=== PATIENT | male | born 1965 | race Asian ===

== ENCOUNTER 2023-10-04 10:35 | Emergency (ER) | payer BC ==
[~2023-10-04] VITALS: Ht 175.3 cm; Wt 83.0 kg
[~2023-10-04 10:35] MED LIST: SEE MED SHEET
[2023-10-04 10:51] VITALS: O2SAT 99
[2023-10-04 11:14] LABS: HEMATOCRIT 21.5 % (42.0-52.0); HEMOGLOBIN 7.4 g/dL (14.0-18.0); MEAN CORPUSCULAR HEMOGLOBIN 30.6 pg (28.0-32.0); MEAN CORPUSCULAR HGB CONC 34.4 g/dL (31.0-37.0); PLATELET 256 x1000/uL (130-400); RED BLOOD CELL COUNT 2.41 mill/uL (4.7-6.1); RED CELL DISTRIBUTION WIDTH 15.2 % (11.6-14.6); WHITE BLOOD COUNT 4.9 x1000/uL (4.5-11.0)
[2023-10-04 11:19] LABS: CHLORIDE 97 mEq/L (98-107); POTASSIUM 3.7 mEq/L (3.5-5.1); SODIUM 138 mEq/L (136-145)
[2023-10-04 11:20] LABS: CARBON DIOXIDE 33 mEq/L (21-32)
[2023-10-04 11:21] LABS: CALCIUM 9.2 mg/dL (8.7-10.4)
[2023-10-04 11:25] LABS: GLUCOSE 106 mg/dL (70-105)
[2023-10-04 11:26] LABS: UREA NITROGEN BLOOD 18 mg/dL (9-23)
[2023-10-04 11:27] LABS: ALANINE AMINOTRANSFERASE 15 IU/L (10-49); ALBUMIN 4.5 g/dL (3.2-4.8); ASPARTATE AMINOTRANSFERASE 14 IU/L (<34)
[2023-10-04 11:28] LABS: BILIRUBIN TOTAL 0.3 mg/dL (0.1-1.0); CREATININE 5.9 mg/dL (0.6-1.3); PROTEIN TOTAL 7.2 g/dL (6.0-8.3)
[2023-10-04 12:32] VITALS: BP 146/85; PULSE 75; RESP 14; TEMP 97.7
== END 2023-10-04 12:42 | disposition home or self-care (01) ==
LOC: ER 10:35
DX: D64.9 Anemia, unspecified (principal); Z98.890 Other specified postprocedural states
CPT/HCPCS: 80053; 85027; 86850; 86900; 86901; 36415; 99283; Z7610 ×2

== ENCOUNTER 2023-10-10 17:37 | Emergency (ER) | payer BC ==
[~2023-10-10] VITALS: Ht 175.3 cm; Wt 82.0 kg
[2023-10-10 18:16] VITALS: O2SAT 100
[2023-10-10 20:00] LABS: BASOPHILS % 0.9 % (0.0-2.0); HEMATOCRIT. 21.4 % (42.0-52.0); HEMOGLOBIN. 7.1 g/dL (14.0-18.0); LYMPHOCYTES % 13.3 % (20.0-50.0); MEAN CORPUSCULAR HGB CONC 32.9 g/dL (31.0-37.0); MEAN CORPUSCULAR VOLUME 91.2 fL (80.0-94.0); MEAN PLATELET VOLUME 7.5 fl (7.4-10.4); MONOCYTES % 7.7 % (2.0-8.0); NEUTROPHILS % 76.1 % (40.0-76.0); PLATELET 267 x1000/uL (130-400); RED BLOOD CELL COUNT 2.35 mill/uL (4.7-6.1); RED CELL DISTRIBUTION WIDTH 15.7 % (11.6-14.6); WHITE BLOOD COUNT 7.7 x1000/uL (4.5-11.0)
[2023-10-10 20:01] LABS: CHLORIDE 101 mEq/L (98-107); POTASSIUM 5.7 mEq/L (3.5-5.1); SODIUM 139 mEq/L (136-145)
[2023-10-10 20:02] LABS: CALCIUM 9.2 mg/dL (8.7-10.4); CARBON DIOXIDE 30 mEq/L (21-32)
[2023-10-10 20:05] LABS: PARTIAL THROMBOPLASTIN TIME 24.3 sec (23.4-31.0); PROTHROMBIN TIME 11.4 sec (9.6-11.0)
[2023-10-10 20:07] LABS: GLUCOSE 82 mg/dL (70-105); UREA NITROGEN BLOOD 43 mg/dL (9-23)
[2023-10-10 20:09] LABS: ALANINE AMINOTRANSFERASE 10 IU/L (10-49); ALBUMIN 4.7 g/dL (3.2-4.8); ASPARTATE AMINOTRANSFERASE 12 IU/L (<34); BILIRUBIN TOTAL 0.2 mg/dL (0.1-1.0); PROTEIN TOTAL 7.2 g/dL (6.0-8.3)
[2023-10-10] MEDS ORDERED: INSULIN REGULAR (HUMULIN R) 300UNITS/3ML VIAL IV ONE (20:15)
[2023-10-10] MEDS: CALCIUM GLUCONATE 1GM PREMIX 100 ML IV NR (20:15)
[2023-10-10] MEDS ORDERED: CALCIUM GLUCONATE 1,000 MG in DEXT 5% WATER 100 ML IV ONE (20:15)
[2023-10-10 20:18] LABS: CREATININE 10.7 mg/dL (0.6-1.3)
[2023-10-10] MEDS: DEXTROSE 50% WATER 50ML SYRINGE IV ONE (21:27)
[2023-10-10] MEDS: SODIUM BICARBONATE 8.4% 1 MEQ/ML 50ML SYR IV ONE (21:28)
[2023-10-10] MEDS: INSULIN REGULAR (HUMULIN R) 300UNITS/3ML VIAL IV NR (21:31)
[2023-10-10 23:08] VITALS: BP 165/91; PULSE 78; RESP 12; TEMP 98.1
== END 2023-10-10 23:13 | disposition home or self-care (01) ==
LOC: ER 17:37
DX: D64.9 Anemia, unspecified (principal); E87.5 Hyperkalemia; N18.6 End stage renal disease; Z99.2 Dependence on renal dialysis; Z98.890 Other specified postprocedural states
CPT/HCPCS: 80053; 85025; 85610; 85730; 86850; 86900; 86901; 36415; 93005; 96365; 96375; 99291; J0610; J1815; J3490; J7060